=== PATIENT | female | born 1960 | race Caucasian/White ===

== ENCOUNTER → 2017-05-11 | Outpatient (CLI) | payer OTHER ==
[~2017-05-11] MED LIST: AMOX-358 PO; ATOR20TA66 PO; CLOP75TA28 PO; HYDR-757 PO; METO-370 PO; OMEP40CA36 PO; PANT40TA3 PO
--- NOTE | 2017-05-11 13:28 | Diagnostic Imaging Report ---
INDICATION: Screening. TECHNIQUE: Screening digital mammography was performed bilaterally with a Computer Aided Detection (CAD) system. COMPARISON: No prior examinations are available for comparison. FINDINGS: The breasts are primarily involutional. There are a few benign type calcifications. There is no dominant mass, spiculated lesion, or suspicious calcification identified. The skin, nipples, and axillae are unremarkable. IMPRESSION: Benign findings. ACR BI-RADS Category 2: Benign findings. Result letter will be mailed to the patient. Note: At least 10% of breast cancer is not imaged by mammography. Dictated by: Dictated on workstation # [id number]
== END ==
LOC: RAD 08:42
PROVIDERS: ATTEND Nurse Practitioner Family
DX: Z12.31 Encounter for screening mammogram for malignant neoplasm of breast (principal)
CPT/HCPCS: 77067

== ENCOUNTER 2017-05-17 05:35 | Outpatient (CLI) | payer OTHER ==
[~2017-05-17] VITALS: Ht 160 cm; Wt 86.4 kg
[2017-05-17] MEDS ORDERED: CETI10TA20 PO (11:16)
[2017-05-17] MEDS ORDERED: ASPI-586 PO (11:16)
== END 2017-05-17 11:20 ==
LOC: PREOP 05:35
PROVIDERS: ATTEND Surgery
DX: Z01.818 Encounter for other preprocedural examination (principal); Z12.11 Encounter for screening for malignant neoplasm of colon

== ENCOUNTER 2017-05-24 09:26 | Day surgery (SDC) | payer OTHER ==
[~2017-05-24] VITALS: Ht 160 cm; Wt 86.4 kg
[~2017-05-24 09:26] MED LIST changes: +ASPI-586 PO; +CETI10TA20 PO
[2017-05-24] MEDS ORDERED: LACTATED RINGERS 1,000 ML IV ONE (09:33)
--- NOTE | 2017-05-24 09:48 | Progress Note-Pre Operative ---
Pre-Operative Progress Note H&P Reviewed The H&P was reviewed, patient examined and no changes noted. Time Seen by Provider: 09:43 Date H&P Reviewed: May 24, 2017 Time H&P Reviewed: 09:46 Pre-Operative Diagnosis: screening colonoscopy TIFFANY ELIZABETH DO May 24, 2017 09:48
[2017-05-24] MEDS ORDERED: MIDAZOLAM 2 MG/2 ML (VERSED) VIAL ONE (09:58)
[2017-05-24] MEDS ORDERED: PROPOFOL INJECTION 50 ML IV ONE (09:58)
--- NOTE | 2017-05-24 10:28 | Progress Note-Post Operative ---
Post-Operative Progess Note Surgeon (s)/Editorial Cartoonist (s) Surgeon TIFFANY ELIZABETH DO Editorial Cartoonist: none Pre-Operative Diagnosis screening colonoscopy Post-Operative Diagnosis Ascending Colon Polyp Diverticula Int Hemorrhoids Procedure & Operative Findings Date of Procedure 05/24/17 Procedure Performed/Findings colon with snare Anesthesia Type IV sedation by TOP TRIMMER Estimated Blood Loss Estimated blood loss (mL): scant Specimens/Packing Specimens Removed ascending colon polyp TIFFANY ELIZABETH DO May 24, 2017 10:28
--- NOTE | 2017-05-24 10:29 | Endoscopy Discharge Instruct ---
Endo Procedure/Findings Findings 1.: Polyp 2.: Diverticulosis 3.: Internal Hemorrhoids Discharge Instructions - Activity: You might feel a little sleepy until tomorrow. This is due to the medicine you received to relax you. Until tomorrow, you should: NOT drive a car, operate machinery or power tools. NOT drink any alcoholic beverages. NOT make any important decisions or sign importortant papers. Do not return to work until tomorrow, unless otherwise instructed. Resume previous activities tomorrow. Diet: Start by taking liquids. If you tolerate liquids, advance to solid food. Notify Physician - If you experience excessive bleeding, unusual abdominal pain, fever, or chest pain, contact your doctor immediately. Follow-Up: - I have received and understand the above instructions and will call my doctor if I have any further questions. Patient Signature Date Nurse Signature Other (Relationship) TIFFANY ELIZABETH DO May 24, 2017 10:29
[2017-05-24 10:45] VITALS: BP 143/66
[2017-05-24 11:21] VITALS: BP 174/80
[2017-05-24 11:23] VITALS: BP 174/80
--- NOTE | 2017-05-24 18:33 | OPERATIVE REPORT ---
DATE OF SERVICE: 05/24/2017 PREOPERATIVE DIAGNOSIS: Screening colonoscopy. POSTOPERATIVE DIAGNOSES: 1. Colon polyp. 2. Diverticula. 3. Internal hemorrhoids. PROCEDURE: Colonoscopy with snare polypectomy. SURGEON: Raj Panda DO ALIGNMENT SPECIALIST: None. ANESTHESIA: IV sedation by the MORTGAGE COLLECTOR. SPECIMEN: Polyps from the ascending colon. BLOOD LOSS: Scant. FLUIDS: Per anesthesia. POSTOPERATIVE CONDITION: Stable. INDICATIONS FOR PROCEDURE: The patient is a 56-year-old female, who has never had a colonoscopy and needed one for screening. FINDINGS: The patient had a flat polyp in the ascending colon. She also had some diverticula in the sigmoid colon and she had some small internal hemorrhoids. PROCEDURE NOTE: After informed consent was obtained, the patient was brought to the endoscopy suite, placed in the bed in left lateral decubitus position. She was administered IV sedation by the MORTGAGE COLLECTOR, who then monitored her vitals the entire time, heart rate, blood pressure and pulse ox and the scope was inserted, pushed all the way to about 150 cm, able to get all the way to cecum, took a picture of appendiceal orifice and noted the ileocecal valve and then slowly withdrew the scope insufflating to look circumferentially at the wynn looking at the cecum up into the ascending colon, soft, flat polyp, took a picture of this and then did a snare polypectomy of this and then continued up to the hepatic flexure, down the transverse colon, the splenic flexure, into the descending colon and down into the sigmoid and the sigmoid showed some diverticula, took a picture of this and then continued down into the rectal vault. Retroflexed in the rectal vault, saw some internal hemorrhoids, took a picture of this and then removed the scope. The patient tolerated the procedure and she was recovered in the endoscopy suite. Job ID: [id number] DocumentID: [id number] Dictated Date: 05/24/2017 10:26:46 Smasher Date: 05/24/2017 18:33:00 Dictated By: RAJ PANDA DO
== END 2017-05-24 11:30 | disposition home or self-care (01) ==
LOC: ENDO 09:26
PROVIDERS: ATTEND Surgery
DX: Z12.11 Encounter for screening for malignant neoplasm of colon (principal); D12.2 Benign neoplasm of ascending colon; K57.30 Diverticulosis of large intestine without perforation or abscess without bleeding; K64.8 Other hemorrhoids; I25.10 Atherosclerotic heart disease of native coronary artery without angina pectoris; R79.1 Abnormal coagulation profile; G47.33 Obstructive sleep apnea (adult) (pediatric); E78.5 Hyperlipidemia, unspecified; I10 Essential (primary) hypertension; Z87.891 Personal history of nicotine dependence
CPT/HCPCS: 88305

== ENCOUNTER → 2018-06-07 | Outpatient (CLI) | payer OTHER ==
[~2018-06-07] MED LIST changes: +HYDR-4226 PO; -HYDR-757 PO
--- NOTE | 2018-06-07 12:06 | Diagnostic Imaging Report ---
INDICATION: Screening. TECHNIQUE: The current study was also evaluated with a Computer Aided Detection (CAD) system. 3D tomographic imaging was also performed. COMPARISON: 06/07/2017. FINDINGS: There are scattered fibroglandular densities bilaterally. There is an unchanged benign-appearing nodular density in the lateral aspect of the left breast. There is no other dominant mass, spiculated lesion, or suspicious calcification identified. The skin, nipples, and axillae are unremarkable. IMPRESSION: Benign findings. ACR BI-RADS Category 2: Benign findings. Result letter will be mailed to the patient. Note: At least 10% of breast cancer is not imaged by mammography. Dictated by: Dictated on workstation # [id number]
== END ==
LOC: RAD 07:32
PROVIDERS: ATTEND Family Medicine
DX: Z12.31 Encounter for screening mammogram for malignant neoplasm of breast (principal)
CPT/HCPCS: 77067

== ENCOUNTER → 2018-06-14 | Outpatient (CLI) | payer OTHER ==
[~2018-06-14] VITALS: Ht 160 cm; Wt 84.8 kg
[~2018-06-14] MED LIST changes: +CATHETER FLUSH 10 ML SYR IV PRN; +REGADENOSON 0.4 MG/5 ML SYR (LEXISCAN) IV ONE
[2018-06-14 09:42] VITALS: BP 116/45
[2018-06-14 09:45] VITALS: BP 130/46
--- NOTE | 2018-06-14 15:37 | STRESS TEST ---
DATE OF SERVICE: 06/14/2018 RESTING AND POST REGADENOSON TECHNETIUM-99M TETROFOSMIN SPECT CT IMAGING ORDERING PHYSICIAN: Dr. Deleon. CLINICAL DIAGNOSIS: Coronary artery disease. Baseline images were carried out after injection of 10.99 mCi of technetium-99m Tetrofosmin. This was followed by 0.4 mg of regadenoson and 31.5 mCi of technetium-99m Tetrofosmin for stress imaging. The electrocardiogram showed sinus rhythm at baseline. There was nonspecific ST abnormality. The electrocardiogram did not change significantly with the regadenoson infusion. The patient reported some heaviness in the chest after regadenoson infusion, which resolved in a few minutes. Review of images at rest and following stress does not indicate any significant perfusion defect consistent with significant myocardial ischemia or infarction. Gated images show normal global left ventricular systolic function with normal regional wall motion. Left ventricular ejection fraction is calculated to be 72%. Left ventricular end diastolic volume is 43 mL. TID is absent (1.01). CONCLUSIONS: 1. No evidence of any significant myocardial ischemia or infarction on this study. 2. Normal regional wall motion. 3. Normal global left ventricular systolic function with a calculated ejection fraction of 72%. Job ID: [id number] DocumentID: [id number] Dictated Date: 06/14/2018 13:27:50 Sulfuric Acid Plant Supervisor Date: 06/14/2018 15:36:19 Dictated By: MONICA DELEON MD, MA, FACP, FACC,
== END ==
LOC: CARD 08:06
PROVIDERS: ATTEND Internal Medicine Cardiovascular Disease
DX: I25.10 Atherosclerotic heart disease of native coronary artery without angina pectoris (principal); I77.9 Disorder of arteries and arterioles, unspecified; E78.5 Hyperlipidemia, unspecified; I10 Essential (primary) hypertension
CPT/HCPCS: 78452; 93017

== ENCOUNTER → 2019-01-10 | Outpatient (CLI) | payer OTHER ==
[~2019-01-10] MED LIST changes: -CATHETER FLUSH 10 ML SYR IV PRN; -METO-370 PO; +METO50TA7 PO; +OMEP40CA27 PO; -OMEP40CA36 PO; -REGADENOSON 0.4 MG/5 ML SYR (LEXISCAN) IV ONE
--- NOTE | 2019-01-10 08:49 | Diagnostic Imaging Report ---
INDICATION: History of tobacco use with a 40 pack year history. Quit smoking July 2015. TECHNIQUE: Noncontrast, low-dose CT imaging performed according to lung cancer screening protocol. COMPARISON: None FINDINGS: HEART/MEDIASTINUM: Heart size normal. There is prominent scattered coronary artery calcification. Thoracic aortic contour are unremarkable. No suggestion for pathologically enlarged mediastinal lymph nodes on limited, noncontrast imaging. Small hiatal hernia. LUNGS/MEASURED PULMONARY NODULES: Lungs are clear of infiltrate. No abnormal pulmonary mass. OTHER: Moderately advanced degenerative change about the thoracic spine. IMPRESSION: 1. No concerning pulmonary mass at baseline lung screening assessment. 2. Prominent severity of scattered coronary artery calcification. If clinically warranted, coronary artery calcium screening may be of additional benefit. LUNG-RADS CATEGORY: 1-S LUNG SCREENING MANAGEMENT/RECOMMENDATIONS: Continued annual screening with low dose CT in 12 months. Notes: Lung rads category 1 or 2 does not mean that an individual does not have lung cancer or other active disease process, but rather nothing is identified to meet criteria for current lung pathology. Therefore, continued annual lung cancer screening should be performed. Please note that this is a low dose CT examination, intended for lung cancer screening of high risk patients. As a technical result, the examination is limited in diagnostic quality compared to a conventional CT examination of the chest. Dictated by: Dictated on workstation # [id number]
== END ==
LOC: RAD 07:46
PROVIDERS: ATTEND Nurse Practitioner Family
DX: I25.10 Atherosclerotic heart disease of native coronary artery without angina pectoris (principal); M47.814 Spondylosis without myelopathy or radiculopathy, thoracic region; Z87.891 Personal history of nicotine dependence

== ENCOUNTER → 2019-07-14 | Outpatient (CLI) | payer OTHER ==
[~2019-07-14] MED LIST changes: -CETI10TA20 PO; +CETI10TA21 PO
--- NOTE | 2019-07-14 13:01 | Diagnostic Imaging Report ---
INDICATION: Digital screening with CAD, 2-D and 3-D COMPARISON: 05/2018 and 05/2017 FINDINGS: Breast parenchymal pattern predominantly fatty, unchanged. No mass or architectural distortion. No spiculated lesion or suspicious calcifications. IMPRESSION: Stable negative mammograms. BI-RADS Category 1 ACR BI-RADS Category 1: Negative. Result letter will be mailed to the patient. Note: At least 10% of breast cancer is not imaged by mammography. Dictated by: Dictated on workstation # [id number]
== END ==
LOC: RAD 07:21
PROVIDERS: ATTEND Nurse Practitioner Family
DX: Z12.31 Encounter for screening mammogram for malignant neoplasm of breast (principal)
CPT/HCPCS: 77063; 77067

== ENCOUNTER → 2020-03-01 | Outpatient (CLI) | payer OTHER ==
[~2020-03-01] MED LIST changes: -CETI10TA21 PO; +CETI10TA49 PO; -PANT40TA3 PO; +PANT40TA52 PO
--- NOTE | 2020-03-01 09:57 | Diagnostic Imaging Report ---
CT Lung Screening INDICATION:40 pack year smoking history cessation 4 years ago presents for low-dose CT screening TECHNIQUE: Noncontrast, low-dose CT imaging performed according to the lung cancer screening protocol. Auto Exposure Controls were utilize during the CT exam to meet ALARA standards for radiation dose reduction. COMPARISON:01/10/2019 FINDINGS:No suspicious pulmonary nodule or dominant lung mass. There is trace likely physiologic dependent atelectasis in the lung bases. There is some mild generalized air trapping. No bronchiectasis, blebs, bullous disease or air cysts. No findings of pneumonia or pulmonary edema. There is no pneumothorax. No chest effusion. Coronary artery atherosclerotic vascular calcifications chronic. The thoracic aorta is normal in caliber. The visualized upper abdomen appeared nonacute. IMPRESSION:No concerning lung mass LUNG-RADS CATEGORY:Category 1 MODIFIER:None OTHER SIGNIFICANT FINDINGS:Coronary atherosclerotic disease Dictated by: Dictated on workstation # [id number]
== END ==
LOC: RAD 09:10
PROVIDERS: ATTEND Nurse Practitioner Family
DX: Z12.2 Encounter for screening for malignant neoplasm of respiratory organs (principal); I25.10 Atherosclerotic heart disease of native coronary artery without angina pectoris; Z87.891 Personal history of nicotine dependence
CPT/HCPCS: 71271

== ENCOUNTER → 2020-07-16 | Outpatient (CLI) | payer OTHER ==
--- NOTE | 2020-07-16 20:42 | Diagnostic Imaging Report ---
Digital mammogram bilateral screening This study was compared to the prior exam of 07/14/2019, 06/07/2018, and 05/11/2017. At this time, there are no current complaints. The current study was also evaluated with a Computer Aided Detection (CAD) system. FINDINGS: There is a mild amount of fibroglandular tissue present in both breasts, similar to the prior exam. No primary or secondary sign of malignancy is noted. IMPRESSION: There is no radiographic evidence for malignancy. ACR BI-RADS Category 1: Negative. Result letter will be mailed to the patient. Note: At least 10% of breast cancer is not imaged by mammography. Dictated by: Dictated on workstation # [id number]
== END ==
LOC: RAD 07:30
PROVIDERS: ATTEND Nurse Practitioner Family
DX: Z12.31 Encounter for screening mammogram for malignant neoplasm of breast (principal)
CPT/HCPCS: 77063; 77067

== ENCOUNTER 2020-12-25 07:55 | Outpatient (RCR) | payer OTHER ==
[2020-12-18] MEDS: FERRIC CARBOXYMALTOSE INJ 750 MG in NS (IVPB) 250 ML IV SCH (08:38)
[2020-12-18 09:45] VITALS: BP 175/70
[~2020-12-25] VITALS: Ht 160 cm; Wt 86.4 kg
[~2020-12-25 07:55] MED LIST changes: +LOSA50TA63 PO; -OMEP40CA27 PO; +OMEP40CA6 PO
[2020-12-25] MEDS: FERRIC CARBOXYMALTOSE INJ 750 MG in NS (IVPB) 250 ML IV SCH (08:17)
[2020-12-25 08:21] VITALS: BP 136/59
== END 2020-12-25 08:43 | disposition home or self-care (01) ==
LOC: SDC 07:55
PROVIDERS: ATTEND Nurse Practitioner Family
DX: D50.9 Iron deficiency anemia, unspecified (principal)
CPT/HCPCS: 96365

== ENCOUNTER → 2021-01-28 | Outpatient (CLI) | payer OTHER ==
[~2021-01-28] VITALS: Ht 160 cm; Wt 86.0 kg
[~2021-01-28] MED LIST changes: +CATHETER FLUSH 10 ML SYR IV PRN; +REGADENOSON 0.4 MG/5 ML SYR (LEXISCAN) IV ONE
[2021-01-28 13:07] VITALS: BP 166/63
--- NOTE | 2021-01-29 01:56 | STRESS TEST ---
DATE OF SERVICE: 01/28/2021 RESTING AND POST REGADENOSON TECHNETIUM-99M TETROFOSMIN SPECT CT IMAGING ORDERING PHYSICIAN: Dr. Deleon. PRIMARY PHYSICIAN: Dr. Blanchard. CLINICAL DIAGNOSIS: Coronary artery disease. Baseline images were carried out after injection of 10.38 mCi of technetium-99m Tetrofosmin. This was followed by 0.4 mg regadenoson and 30.3 mCi of technetium-99m Tetrofosmin for stress imaging. The electrocardiogram showed sinus rhythm with nonspecific ST abnormality. It did not change significantly with regadenoson infusion. The patient noted mild shortness of breath following regadenoson infusion, which resolved in a few minutes. Review of images at rest and following stress does not indicate any significant perfusion defects consistent with myocardial ischemia or infarction. Gated images show normal global left ventricular systolic function with normal regional wall motion. Left ventricular ejection fraction is calculated to be 82%. Left ventricular end-diastolic volume is 35 mL. TID is absent (1.05). CONCLUSIONS: 1. No evidence of any significant myocardial ischemia or infarction on this study. 2. Normal regional wall motion. 3. Normal to hyperdynamic left ventricular systolic function with a calculated ejection fraction of 82%. Job ID: [id number] DocumentID: [id number] Dictated Date: 01/28/2021 21:53:43 Crossband Layer Date: 01/29/2021 01:56:09 Dictated By: MONICA DELEON MD, MA, FACP, FACC,
== END ==
LOC: CARD 11:00
PROVIDERS: ATTEND Internal Medicine Cardiovascular Disease
DX: I25.10 Atherosclerotic heart disease of native coronary artery without angina pectoris (principal)
CPT/HCPCS: 78452; 93017; 93306; A9502

== ENCOUNTER → 2021-07-17 | Outpatient (CLI) | payer OTHER ==
[~2021-07-17] MED LIST changes: -CATHETER FLUSH 10 ML SYR IV PRN; -REGADENOSON 0.4 MG/5 ML SYR (LEXISCAN) IV ONE
--- NOTE | 2021-07-17 09:50 | Diagnostic Imaging Report ---
INDICATION: Routine screening. COMPARISON: 07/16/2020 and 07/14/2019. TECHNIQUE: 2D and 3D bilateral screening mammography was performed with CAD. FINDINGS: Scattered fibroglandular densities are identified bilaterally. Benign nodules in the outer and upper aspect of the left breast appear stable. No new mass or malignant-appearing microcalcifications are seen. The axillae are unremarkable. IMPRESSION: No mammographic features suspicious for malignancy are identified. ACR BI-RADS Category 2: Benign findings. Result letter will be mailed to the patient. Note: At least 10% of breast cancer is not imaged by mammography. Dictated by: Dictated on workstation # [id number]
== END ==
LOC: RAD 07:30
PROVIDERS: ATTEND Nurse Practitioner Family
DX: Z12.31 Encounter for screening mammogram for malignant neoplasm of breast (principal)
CPT/HCPCS: 77063; 77067

== ENCOUNTER → 2022-12-24 | Outpatient (CLI) | payer OTHER ==
--- NOTE | 2022-12-24 09:49 | Diagnostic Imaging Report ---
Indication: Routine screening. Comparison is made with prior mammogram from 07/17/2021 and 07/16/2020. 2-D and 3-D bilateral screening mammography was performed with CAD. The current study was also evaluated with a Computer Aided Detection (CAD) system. Scattered fibroglandular densities are identified bilaterally. Benign-appearing nodules in the outer left breast appear stable and most consistent with intraparenchymal nodes. No new mass or malignant-appearing microcalcifications are seen. Axillae are unremarkable. IMPRESSION: BI-RADS Category 2 No mammographic features suspicious for malignancy are identified. ACR BI-RADS Category 2: Benign findings. Result letter will be mailed to the patient. Note: At least 10% of breast cancer is not imaged by mammography. Dictated by: Dictated on workstation # [id number]
== END ==
LOC: RAD 07:17
PROVIDERS: ATTEND Family Medicine
DX: Z12.31 Encounter for screening mammogram for malignant neoplasm of breast (principal)
CPT/HCPCS: 77063; 77067